=== PATIENT | male | born 1985 | race Caucasian/White ===

== ENCOUNTER 2016-12-11 19:34 | Inpatient (IN) | payer OTHER ==
--- NOTE | ~2016-12-11 | PN ---
Unit #: [id number] #: [id number] Patient: URSULA MILTON [id number] [facility] [address] [place] [address] [id number] MR#: [id number] NAME: URSULA MILTON ROOM: 75 Age: 31 Sex: M Admission Date: 12/11/2016 : 1985 Attending Physician: Ricardo Barnett M.D. Admitting Physician: Ricardo Barnett M.D. Primary Care Physician: Primary Care Physician Ingrid NAVARRO PROGRESS NOTES DATE 12/13/2016 DISCUSSION The patient is awake and much brighter today. He is denying suicidal ideation and exhibits little in the way of signs or symptoms of withdrawal. The patient states that he lives in [facility] and will want to follow up with resources in that area. Should he sustain progress, discharge will likely take place after the weekend. Dictated by... Ricardo Barnett M.D. CB/kristie TD: 12/13/2016 17:18 JOB #: [id number] [facility] PROGRESS NOTES Page 1 of 1 X Ricardo Barnett MD X PROGRESS NOTE
--- NOTE | ~2016-12-11 | PA ---
Unit #: [id number] #: [id number] Patient: URSULA MILTON [id number] [place] [address] [id number] MR#: [id number] NAME: URSULA MILTON ROOM: 75 Age: 31 Sex: M Admission Date: 12/11/2016 : 1985 Date of Assessment: 12/12/2016 Attending Physician: Ricardo Barnett M.D. Admitting Physician: Ricardo Barnett M.D. Primary Care Physician: Primary Care Physician No PSYCHIATRIC ASSESSMENT IDENTIFYING INFORMATION The patient is a 31-year-old single white male admitted to the [address] [place] [address] with a history of polysubstance dependence and depressed mood. INFORMANT(S) Chart, patient cannot be aroused for interview. CHIEF COMPLAINT None given. HISTORY OF PRESENT ILLNESS The patient is a 31-year-old white male with no prior history of chemical dependence or other psychiatric treatment. He presented to this facility yesterday with a history of polysubstance dependence including abuse of alcohol, methamphetamine, cocaine, heroin, pain pills, Xanax and ecstasy. The patient reports no previous chemical dependence treatment and states that he wishes to "be sober for the first time in 20 years." The patient is currently living with his grandmother, is unemployed. He has reported some reduction in sleep and loss of appetite but denies suicidal ideation at time of admission. PAST PSYCHIATRIC HISTORY None. FAMILY HISTORY Noncontributory. SOCIAL HISTORY The patient lives with his grandmother. He is not presently employed. He completed the 11th grade but quit school in the 12th grade. He is the father of one out of wedlock child. He has a history of multiple arrests on mainly drug related charges. MEDICAL HISTORY Noncontributory. MEDICATION HISTORY None. ALLERGIES None. MENTAL STATUS EXAM Unit #: [id number] #: [id number] Patient: URSULA MILTON At this time, reveals the patient to be a soundly sleeping white male who has a blanket over his head. Multiple attempts to arouse the patient are unsuccessful. ASSETS AND LIABILITIES Patient's assets to be assessed. Liabilities, lack of resources. ADMITTING DIAGNOSES 1. Alcohol use disorder. 2. Cocaine use disorder. 3. 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 5. Opioid use disorder. 6. Antisocial personality traits versus disorder. 7. Dysthymic disorder. PSYCHIATRIC PLAN/TREATMENT GOALS The patient remains hospitalized for safety and stabilization. Routine detoxification protocol for alcohol has been initiated as the patient was intoxicated at the time of admission and did have a CIWA score of 15 with a pulse of 122. The patient will participate in appropriate burnett and milieu activities once able to do so and I will ask a social media campaign manager to see him regarding post discharge treatment options. Dictated by... Ricardo Barnett M.D. KRISTY/kristie TD: 12/12/2016 15:16 JOB #: [id number] PSYCHIATRIC ASSESSMENT Page 1 of 1 X Ricardo Barnett MD X PSYCHIATRIC ASSESSMENT
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
--- NOTE | ~2016-12-11 | DS ---
Unit #: [id number] #: [id number] Patient: URSULA MILTON [id number] [facility] [address] [place] [address] [id number] MR#: [id number] NAME: URSULA MILTON ROOM: [facility] Age: 31 Sex: M Admission Date: 12/11/2016 : 1985 Discharge Date: 12/14/2016 Attending Physician: Ricardo Barnett M.D. DISCHARGE SUMMARY REASON FOR ADMISSION The patient is a 51-year-old single white male, admitted with a history of polysubstance dependence. HOSPITAL COURSE The patient was admitted to the [address] [place] [address] unit and placed on suicide precautions. Routine detoxification protocol for alcohol and sedative hypnotics was ordered. The patient's stay in the hospital was uneventful one. He had little in the way of signs or symptoms of withdrawal and his mood brightened considerably as his brief stay in the hospital progressed. By 12/14/2016, the patient requested discharge from the hospital and was agreeable with plan for followup in the chemical dependency intensive outpatient program provided by this facility. As per his request, discharge was ordered. Dictated by... Ricardo Barnett M.D. CB/mitchell TD: 12/14/2016 17:44 JOB #: [id number] DISCHARGE SUMMARY Page 1 of 1 X Ricardo Barnett MD X DISCHARGE SUMMARY
[2016-12-12 10:05] LABS: THYROID STIMULATING HORMONE 1.19 uIU/ml (0.34-5.60)
[2016-12-12 10:09] LABS: BASOPHIL# 0.1 X10e3 (0-0.3); BASOPHIL% 0.9 % (0-2.5); EOSINOPHIL# 0.2 X10e3 (0-0.7); EOSINOPHIL% 2.7 % (0.0-7.0); HEMATOCRIT 46.5 % (38.0-50.0); HEMOGLOBIN 15.7 gm/dL (13.0-16.0); LYMPHOCYTE# 2.9 X10e3 (1.0-3.5); MEAN CELL VOLUME 95.2 FL (83-96); MEAN CORPUSCULAR HEMOGLOBIN 32.2 PG (28-34); MEAN CORPUSCULAR HGB CONC 33.8 g/dL (30-36); MEAN PLATELET VOLUME 9.3 FL (6.5-11.5); MONOCYTE# 0.8 X10e3 (0-1.0); NEUTROPHIL% 34.4 % (40-75); PLATELET COUNT 182 X10e3 (140-420); RED BLOOD COUNT 4.88 X10e (3.90-5.60); RED CELL DISTRIBUTION WIDTH 13.8 % (11.0-15.5); WHITE BLOOD COUNT 5.9 X10e3 (4.0-10.5)
[2016-12-12 10:12] LABS: FREE THYROXIN (T4) 0.96 ng/dL (0.58-1.64)
[2016-12-12 10:14] LABS: ALBUMIN SERUM 3.7 g/dL (3.5-5.0); BILIRUBIN,TOTAL 0.8 mg/dL (0.2-2.0); BUN/CREATININE RATIO 14.44; CALCIUM SERUM 8.8 mg/dL (8.4-10.2); CREATININE SERUM 0.9 mg/dL (0.6-1.4); GLOM FILT RATE Estimated 112.6 mL/min (>60); POTASSIUM 4.1 mmol/L (3.5-5.1); PROTEIN TOTAL SERUM 6.2 g/dL (6.0-8.3)
[2016-12-12 10:38] LABS: URINE APPEARANCE CLEAR; URINE BILIRUBIN NEG (NEG); URINE BLOOD NEG (NEG); URINE COLOR YELLOW; URINE GLUCOSE NEG (NEG); URINE KETONE NEG (NEG); URINE LEUKOCYTE ESTERASE NEG (NEG); URINE NITRATE NEG (NEG); URINE PH 6.5 (5-8); URINE PROTEIN NEG (NEG); URINE SPECIFIC GRAVITY 1.018 (1.003-1.035); URINE UROBILINOGEN 0.2 MG/DL (NEG)
[2016-12-12 10:50] LABS: DIFF IND NO
[2016-12-12 10:57] LABS: AMPHETAMINE POS (NEG); BARBITURATES NEG (NEG); BENZODIAZEPINES NEG (NEG); COCAINE NEG (NEG); MARIJUANA POS (NEG); OPIATES NEG (NEG); TRICYCLIC ANTIDEPRESSANTS NEG (NEG); U METHADONE NEG (NEG)
== END 2016-12-14 15:10 | disposition home or self-care (01) | DRG 897 ==
LOC: P1E 19:34
PROVIDERS: Specialist
PROC: HZ2ZZZZ Detoxification Services for Substance Abuse Treatment (ICD-10-PCS; principal; 2016-12-11)
DX: F10.20 Alcohol dependence, uncomplicated (principal); F11.20 Opioid dependence, uncomplicated; F13.20 Sedative, hypnotic or anxiolytic dependence, uncomplicated; F14.20 Cocaine dependence, uncomplicated; F16.20 Hallucinogen dependence, uncomplicated; F60.2 Antisocial personality disorder; F34.1 Dysthymic disorder; F17.210 Nicotine dependence, cigarettes, uncomplicated
CPT/HCPCS: 80053; 80307; 81003; 84439; 84443; 85025; 86592